=== PATIENT | female | born 1950 | race Caucasian/White ===

== ENCOUNTER 2016-09-08 06:53 | Day surgery (SDC) | payer OTHER ==
[~2016-09-08] VITALS: Ht 154.9 cm; Wt 61.7 kg
[2016-09-08] MEDS ORDERED: LOVA20TA8 PO (07:28)
[2016-09-08] MEDS ORDERED: SYN.075 PO (07:29)
[2016-09-08] MEDS ORDERED: LIDOCAINE 2% 100 MG/5 ML UJET TP ONE (07:50)
[2016-09-08] MEDS ORDERED: fentaNYL 0.05 MG/ML VIAL ONE (08:24)
== END 2016-09-08 09:10 | disposition home or self-care (01) ==
LOC: MDS 06:53 → MMU 06:55 → MDS 09:10
PROVIDERS: ATTEND Internal Medicine Gastroenterology
DX: Z12.11 Encounter for screening for malignant neoplasm of colon (principal); Q43.8 Other specified congenital malformations of intestine
CPT/HCPCS: 45378; J3010; J7120